=== PATIENT | female | born 1995 | race Caucasian/White ===

== ENCOUNTER 2020-01-28 16:09 | Emergency (ER) | payer MEDICAID, SELFPAY ==
--- NOTE | 2020-01-28 16:15 | DI.RAD_ITS ---
EXAM: XR ANKLE RT COMPLETE CLINICAL HISTORY: Right lateral ankle pain. TECHNIQUE: 2D digital imaging was performed. COMPARISON: No exams were available for comparison FINDINGS: BONES: No acute fracture is present. No bony destructive lesion is seen. JOINTS: The ankle mortise is normally aligned. SOFT TISSUE: Normal. IMPRESSION: Unremarkable radiographs of the right ankle. DATA REPOSITORY: RADIATION DOSE DELIVERED:
[2020-01-28 16:16] VITALS: BP 145/69; PULSE 118; RESP 18; TEMP 36.3; O2SAT 97
--- NOTE | 2020-01-28 16:19 | W.ED.GENAD ---
Discharge Plan Disposition Patient Disposition: HOME Condition: Stable Discharge Details Chief Complaint: Orthopedic Clinical Impression: Right ankle sprain Primary Care Provider: Unknown,Unknown ED Provider: Johana Taylor Discharge Instructions Instructions: Ankle Sprain (ED) Additional Instructions: Follow up with primary care provider in 3-5 days. Return to ED sooner if any worsening or concerns. Increase oral fluids. Please take Tylenol or Ibuprofen with food every 4-6 hours as needed for pain and swelling. Toe-touch weightbearing as tolerated. Rest, ice, compression, elevation. Use splint and crutches as needed for comfort. Stand Alone Forms: Work Release Medical Decision Making At this time x-rays were ordered and ibuprofen 600 mg p.o. TECHNIQUE: Imaging protocol: XR Right ankle. Views: 3 or more views. COMPARISON: No relevant prior studies available. FINDINGS: Bones/joints: No acute fracture identified. Soft tissues: There is mild soft tissue swelling in the region of the lateral malleolus. IMPRESSION: 1. No acute fracture identified. If symptoms persist, consider follow-up imaging in 7 days or alternative imaging modalities. 2. Mild soft tissue swelling in the region of the lateral malleolus. This is a nonspecific finding that can be seen with trauma or infection. Thank you for allowing us to participate in the care of your patient. Dictated and Authenticated by: Tiffany Marroquin MD Patient given a lace up ankle splint and crutches instructed on home care verbalized understanding. HPI General Mode of arrival: ambulatory. Date/Time Provider Initiated Documentation: 01/28/20 16:18. Limitations to Documentation: no limitations. Information obtained by: patient. 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 Patient was at the grocery store wearing flip-flops when she twisted her ankle. She did not following to the ground. She is complaining of right lateral ankle pain just distal to her lateral malleolus. There is no obvious deformity or swelling noted. Dorsal pedal pulses are intact. Extremity is pink warm dry. No proximal tenderness or injury noted. No other complaints at this time. She did not take any medications prior to arrival. She reports pain with weightbearing. Review of Systems Narrative: Constitutional: Negative for weight loss, alert and oriented, well groomed, normal body habitus, appears comfortable. HEENT: Denies trauma, headaches, blurry vision, nasal discharge, sore throat, trouble swallowing. Chest: Denies chest pain, palpitations, irregular rhythm, hypertension. Respiratory: Denies Shortness of breath, cough, hemoptysis. Musculoskeletal: Right ankle pain [facility] Social History Smoking/Tobacco Use Status: Former Tobacco Use Drug use: Never Substance use type: does not use Do you feel safe at home: Yes Do you feel safe in your relationship?: Yes Exam Narrative Exam Narrative: Constitutional: Alert and oriented x3. Appears stated age. Normal body habitus. Head: Normocephalic, no trauma. Eyes: Pupils PERRLA, Red reflex noted, EOM's intact. Eyelids symmetrical without lesions, discharge, or swelling. ENT: Bilateral TM's WNL, External ear normal to inspection, no mastoid TTP, swelling, or erythema, Nasal turbinates WNL, no nasal discharge. Normal dentition, Posterior pharynx WNL, no exudate. Chest: RRR, Normal S1, S2, distal pulses intact. Resp: Lungs clear to auscultation bilaterally, no wheezes, rales, or rhonchi. Musculoskeletal: Normal gait, 5/5 strength to all four extremities. Right lateral ankle tenderness just distal to the lateral malleolus. No obvious deformity or swelling. Dorsal pedal pulses intact. Cap refill less than 2 seconds. Skin: No suspicious rashes or lesions. Capillary refill less than 2 sec. Neurologic: Cranial nerves II-XII intact. Alert and oriented x 3. DTR's intact. Hematologic/Lymphatic: No ecchymosis, no lymphadenopathy.
[2020-01-28] MEDS: Ibuprofen 600 MG TAB PO (16:26)
--- NOTE | 2020-01-28 17:06 | DI.VRAD_ITS ---
PROCEDURE INFORMATION: Exam: XR Right Ankle Exam date and time: 01/28/2020 4:54 PM Age: 24 years old Clinical indication: Other: RT lateral ankle pain TECHNIQUE: Imaging protocol: XR Right ankle. Views: 3 or more views. COMPARISON: No relevant prior studies available. FINDINGS: Bones/joints: No acute fracture identified. Soft tissues: There is mild soft tissue swelling in the region of the lateral malleolus. IMPRESSION: 1. No acute fracture identified. If symptoms persist, consider follow-up imaging in 7 days or alternative imaging modalities. 2. Mild soft tissue swelling in the region of the lateral malleolus. This is a nonspecific finding that can be seen with trauma or infection. Dictated and Authenticated by: Tiffany Marroquin MD. Ordering:BOB Vaughn MD
== END 2020-01-28 17:36 | disposition home or self-care (01) ==
PROVIDERS: Emergency Provider Registered Nurse Emergency
DX: S93.491A Sprain of other ligament of right ankle, initial encounter (principal); W01.0XXA Fall on same level from slipping, tripping and stumbling without subsequent striking against object, initial encounter; X50.9XXA Other and unspecified overexertion or strenuous movements or postures, initial encounter
CPT/HCPCS: 99283; 73610; E0114; L1902

== ENCOUNTER 2020-05-16 19:00 | Outpatient (REF) | payer MEDICAID, SELFPAY | END 2020-05-16 19:20 | LOC: NCHCN 19:00 | PROVIDERS: Visit Provider Nurse Practitioner Women's Health | DX: R30.0 Dysuria (principal) | CPT/HCPCS: 87086 ==

== ENCOUNTER 2020-05-17 01:16 | Outpatient (CLI) | payer MEDICAID, SELFPAY ==
[2020-05-17 17:38] LABS: *AMPHETAMINES SCREEN URINE Negative (Negative); *BARBITURATES SCREEN URINE Negative (Negative); *BENZODIAZEPINES SCREEN URINE Negative (Negative); Cannabinoids THC Negative (Negative); Cocaine Screen,Urine Negative (Negative); METHADONE URINE SCREEN Negative (Negative); OPIATES URINE SCREEN Negative (Negative)
[2020-05-17 17:54] LABS: Tricyclic Antidepressants Negative (Negative)
[2020-05-21 14:59] LABS: Chlamydia Result Negative (Negative); GC Result Negative (Negative)
[2020-05-24 16:37] LABS: Buprenorphine Negative; Norbuprenorphine Negative
== END 2020-05-17 01:36 ==
PROVIDERS: Visit Provider Advanced Practice Midwife
DX: Z34.91 Encounter for supervision of normal pregnancy, unspecified, first trimester (principal); Z11.3 Encounter for screening for infections with a predominantly sexual mode of transmission; Z3A.11 11 weeks gestation of pregnancy
CPT/HCPCS: 80307; 87491; 87591; 87086

== ENCOUNTER 2020-05-17 17:13 | Outpatient (REF) | payer MEDICAID, SELFPAY ==
--- NOTE | 2020-05-17 14:35 | PAPFT_PTH ---
PATIENT: Roxie Cherry LOC: [facility] U#:[id number] AGE/SX: 24/F ROOM: RE05/17/[address]: Alli Mohr RN : 1995 BED: DIS: 05/17/2020 SPEC #: [id number] RECD: 05/17/20 17:48 STATUS: JOHNNIE REQ #: [id number] JOMAR: 05/17/20 14:[address]: Alli Mohr DEPT: [facility] Cytology RECD BY: Nicole River ENTERED: 05/17/20 17:49 SP TYPE: PAPFT OTHR DR: Unknown,Unknown Tissues: 1 - CX/ENDOCX FOR PAP SMEARS Procedures: PAP THIN PREP/UVM Screening Comments: [id number]
== END 2020-05-17 17:33 ==
LOC: LBN 17:13
PROVIDERS: Visit Provider Advanced Practice Midwife
DX: Z12.4 Encounter for screening for malignant neoplasm of cervix (principal)
CPT/HCPCS: 88142

== ENCOUNTER 2020-07-09 01:35 | Outpatient (CLI) | payer MEDICAID, SELFPAY ==
--- NOTE | 2020-07-09 08:30 | DI.US_ITS ---
EXAM: US OB 2-3 TRIMESTER CLINICAL HISTORY: routine pnc,[id number].11. TECHNIQUE: Transabdominal obstetrical ultrasound performed. COMPARISON: No exams were available for comparison FINDINGS: Transabdominal obstetrical ultrasound performed. FINDINGS: Number of fetuses: One. position: Breech heart rate: heart rate was noted but not obtained. Placental location: Anterior no evidence of previa. Amniotic fluid index: Amount of fluid is within normal limits. ANATOMICAL SURVEY: Within normal limits. BIOMETRIC DATA: BPD: 4.0cm consistent with 18 weeks 1 day. HC: 15.7cm consistent with 18 weeks 4 days. AC: 13.0cm consistent with 18 weeks 4 days. FL: 2.9cm consistent with 18 weeks 5 days. Cisterna Magna: 3.2 mm Cerebellum: 1.9 cm EFW: 249 grms 48% Composite Age: 18 weeks 4 days EDC by US: 12/06/2020 IMPRESSION: 1. Single live intrauterine gestation as above. 2. Normal anatomic survey. DATA REPOSITORY:
== END 2020-07-09 01:36 | disposition home or self-care (01) ==
LOC: DI 01:36
PROVIDERS: Visit Provider Advanced Practice Midwife
DX: Z34.92 Encounter for supervision of normal pregnancy, unspecified, second trimester (principal); Z3A.18 18 weeks gestation of pregnancy
CPT/HCPCS: 76805

== ENCOUNTER 2020-09-21 16:19 | Observation (INO) | payer MEDICAID, SELFPAY ==
[2020-09-21] MEDS: LORazepam 1 MG TAB PO (16:21)
[2020-09-21] MEDS: Lidocaine/Prilocaine Cream 5 GM TUBE TP (16:37)
--- NOTE | 2020-09-21 16:38 | NUR.NOTE ---
pt finished glucola at 1625. Lab has been notified to do draw on unit at 1725 along with all other ordered labs. RN spoke with lab to verify timing and orders. Pt received 1mg lorazepam for anxiety at 1621. Emla cream applied to both antecubital areas at 1637 in preparation for blood draw. pt is cooperative and aware of planNursing Note:
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
--- NOTE | 2020-09-21 17:52 | NUTRITION ---
Anesthesia gave MKO melt at 1709 pt vomited about 25cc around 2 minutes later. Pt on continuous pulse ox per anesthesia protocol. RN unable to see medication in emesis due to it either being absorbed in emesis or absorbed by pt. CNM declined to have RN do monitoring.
--- NOTE | 2020-09-21 18:11 | NUR.NOTE ---
Pt able to use nitrous while getting blood drawn, blood draw was successful performed by lab. Re-discussed monitoring with CNM, will do an NST once blood type comes back per CNM Nursing Note:
[2020-09-21 18:27] LABS: HCT 33.8 % (36.0-46.0); HGB 11.4 g/dL (11.2-15.7); MCHC 33.7 % (32.0-36.0); MPV 9.9 fL (8.0-11.0); Platelet Count 267 10^3/uL (130-400); RBC 4.07 10^6/uL (3.93-5.22); RDW-SD 39.2 fL; WBC 13.34 10^3/uL (4.4-10.8)
--- NOTE | 2020-09-21 18:34 | ANES_ITS ---
Date of service: 09/21/20 Time of Service: 18:34 Anesthesia Note Report Anesthesia Note: Anesthesia was consulted earlier this week on this patient by Satish Alarcon for procedural sedation due to the patient's significant history of needle phobia and being 28 weeks gestation without having labs performed. The patient was initially scheduled this past Thursday, however, she cancelled. Rescheduled this afternoon, Satish Alarcon came to the Anesthesia group requesting assistance and potentially additional sedation options. The group discussed possible safe and best medications for the patient and settled on 2 tabs MKO as the best option. 1620: Satish Alarcon called from OB letting this provider know the patient had arrived, gone through intake, and received her glucose drink and 1 mg of Ativan. I proceeded to bedside and met the patient and her partner, Erich. I discussed goals and options with the patient. Plan on arriving back at bedside to assess level of sedation at 1650. 1650: Saw patient again at bedside, does not feel very sedated. Patient appears bright and talkative. Discussed usage of MKOs and brought them to bedside. Patient was preoperatively assessed and consented in presence of her partner and Satish Alarcon. 1710: SPO2 monitoring attached to patient. Initial HR and O2 saturation 147 bpm and 98% on RA. Administered 2 MKOs to the patient. She did not tolerate the taste well and within five minutes vomited about 50 ml bile and glucose mixture with one partially melted MKO visible. The tab did completely melt in the emesis. Patient felt the other tab might have also been in the mixture. I believe the patient absorbed about half a tab. Remained close at bedside and monitored patient. Does appear to have some effect, reports feeling dizzy on standing and feeling tired. HR and SPO2 remain stable at a reduced rate of 112 bpm and 97% RA. Discussed use of nitrous as a supplement with Satish Alarcon, she ordered and managed nitrous at the bedside with the patient. We, as a team, discussed the goal of obtaining a lab draw from the patient. She was initially resistant and also was uncertain of continuing with nitrous therapy. Discussed intranasal precedex, reached out to Kel Gutiérrez for second opinion. Agreed dosing is not necessarily comfortable and is long acting and might pose more of a risk than a benefit to the patient. Several other options discussed, however, without IV access they seem to present more of a risk than is appropriate for a lab draw. We decided one more MKO, swallowed versus allowed to absorb sublingually would be the best option anesthetically. As a team we discussed the option and the rational behind it and brought this plan to the patient. She elected, on her own volition to attempt nitrous and familial support and agreed to her lab draw. The lab draw was successful. 182: Concern related to possible rhogam injection if necessary and the possible need for more sedation. Considering our most recent success I believe that a similar approach would be the best approach. Currently the patient is anesthe tically appropriate for discharge and discussed this with Satish Alarcon and OB RN. Patient and partner were educated and requested patient be wheeled to car by OB RN on discharge. I am available if further consult is necessary for this patient. Medications: 2 MKOs were used for this patient for procedural sedation by Anesthesia.
[2020-09-21 18:50] VITALS: BP 121/70; PULSE 101
[2020-09-21 18:52] LABS: TSH (W/Ref FT4) 5.04 uIU/mL (0.36-3.74)
[2020-09-21 19:07] VITALS: BP 121/70; PULSE 101; TEMP 36.9
[2020-09-21 19:20] LABS: FREE T4 0.87 ng/dL (0.76-1.46)
--- NOTE | 2020-09-21 19:32 | W.PM.OBDISCH ---
Date of service: 09/21/20 Time of Service: 19:32 DS: Diagnosis Discharge Diagnosis (1) Anxiety: Status: Chronic (2) Severe needle phobia: Status: Acute (3) 28 weeks gestation of : Status: Acute Discharge Plan Disposition Patient Disposition: HOME Condition: Good Discharge Details Reason For Visit: anxiety, needle-phobia, plan sedation for blood dr Admit Date/Time: 09/21/20 16:19 Admit Provider: Sherry Jorge Attending Provider: Sherry Jorge Primary Care Provider: Unknown,Unknown Hospital Course Hospital Course: successful blood draw after sedation and attendance of TELEPHONE RECORDER Home Meds and New Rx's Prescriptions: No Action PreTAB 29-1 mg tablet 1 tab PO DAILY Qty: 90 RF: 4 aspirin [Aspirin Low Dose] 81 mg tablet,delayed release (DR/EC) 81 mg PO DAILY RF: 0 triamcinolone acetonide 0.1 % cream 1 applic topical BID Qty: 80 RF: 4 acetaminophen 500 mg capsule 1,000 mg PO BID PRNRF: 0 Discharge Instructions Activity:: Activity as Tolerated Equipment/Supplies:: No Equipment Needed Diet:: Normal Diet Discharge Orders Discharge Orders: Discharge Order (Routine); Ordered 09/21/20 Ordered By: Cher Alarcon OB:DS Summary Contraception Discussed Contraception Discussed: No, Status at Discharge Functional status at discharge: independent ambulation Overall status at discharge: patient is back to baseline Mental Status: mental status grossly normal Speech and Movement: speech and movement normal and speech clear Mood: congruent mood Affect: normal affect [facility] Medical History (Updated 09/21/20 @ 19:22 by Cher Alarcon) Family history of thrombophlebitis PE - mother from same Severe needle phobia Trauma in childhood Family History (Updated 05/17/20 @ 13:35 by Alli Mohr CNM) Father Bladder cancer Oral cancer Flesh-eating bacteria from same. Mother Pulmonary embolism and infarction Depression Multiple personality disorder Asthma Social History Smoking/Tobacco Use Status: Former Tobacco Use Smoking risk assessment performed?: Yes Drug use: Never Substance use type: does not use Do you feel safe at home: Yes Do you feel safe in your relationship?: Yes History History 1 Para 0 Hx # Term Pregnancies 0 Multiple births 0 Hx # Pregnancies 0 Ectopic pregnancies 0 AB induced 0 Hx Number of Living Children 0 AB spontaneous 0 DS: Data Data Completed and Pending Labs on day of discharge: Labs from last 24 hours 09/21/20 09/21/20 09/21/20 18:05 18:05 18:05 WBC RBC Hgb Hct MCV MCH MCHC RDW Plt Count MPV PT Pending INR Pending APTT Pending Pending PTT Control Pending PTT Patient/Cntrl Mix Pending Silica Clot Time Scrn Pending D-Dimer Pending Dil Kevan Viper Venom Pending Lupus Anticoag Interp Pending Functional Protein C Pending APC Resist Ratio (V) Pending APC Resistance Interp Pending Functional Protein S Pending Func Antithrombin III Pending Factor VIII Pending Glucose 1 Hour TSH Free T4 Beta-2 GPI IgG Ab Pending Beta-2 GPI IgM Ab Pending Phospholipid IgG Ab Pending Phospholipid IgM Ab Pending Syphilis Total Ab Hep Bs Antigen Hepatitis C Antibody HIV 1&2 Ag/Ab, 4th Gen Rubella IgG Antibody VZV IgG Antibody Pending CF Specimen CF Source CF Method Cystic Fibrosis Result CF Result Summary CF Interpretation CF Additional Info CF Reviewed By Patient ABO/Rh Antibody Screen 09/21/20 09/21/20 09/21/20 18:05 18:05 18:05 WBC RBC Hgb Hct MCV MCH MCHC RDW Plt Count MPV PT INR APTT PTT Control PTT Patient/Cntrl Mix Silica Clot Time Scrn D-Dimer Dil Kevan Viper Venom Lupus Anticoag Interp Functional Protein C APC Resist Ratio (V) APC Resistance Interp Functional Protein S Func Antithrombin III Factor VIII Glucose 1 Hour TSH 5.04 H Free T4 0.87 Beta-2 GPI IgG Ab Beta-2 GPI IgM Ab Phospholipid IgG Ab Phospholipid IgM Ab Syphilis Total Ab Pending Hep Bs Antigen Hepatitis C Antibody HIV 1&2 Ag/Ab, 4th Gen Rubella IgG Antibody VZV IgG Antibody CF Specimen Pending CF Source Pending CF Method Pending Cystic Fibrosis Result Pending CF Result Summary Pending CF Interpretation Pending CF Additional Info Pending CF Reviewed By Pending Patient ABO/Rh Antibody Screen 09/21/20 09/21/20 09/21/20 18:05 18:05 18:05 WBC RBC Hgb Hct MCV MCH MCHC RDW Plt Count MPV PT INR APTT PTT Control PTT Patient/Cntrl Mix Silica Clot Time Scrn D-Dimer Dil Kevan Viper Venom Lupus Anticoag Interp Functional Protein C APC Resist Ratio (V) APC Resistance Interp Functional Protein S Func Antithrombin III Factor VIII Glucose 1 Hour TSH Free T4 Beta-2 GPI IgG Ab Beta-2 GPI IgM Ab Phospholipid IgG Ab Phospholipid IgM Ab Syphilis Total Ab Hep Bs Antigen Pending Hepatitis C Antibody Pending HIV 1&2 Ag/Ab, 4th Gen Pending Rubella IgG Antibody VZV IgG Antibody CF Specimen CF Source CF Method Cystic Fibrosis Result CF Result Summary CF Interpretation CF Additional Info CF Reviewed By Patient ABO/Rh Antibody Screen 09/21/20 09/21/20 09/21/20 18:05 18:05 18:05 WBC 13.34 H RBC 4.07 Hgb 11.4 Hct 33.8 L MCV 83.0 MCH 28.0 MCHC 33.7 RDW 13.0 Plt Count 267 MPV 9.9 PT INR APTT PTT Control PTT Patient/Cntrl Mix Silica Clot Time Scrn D-Dimer Dil Kevan Viper Venom Lupus Anticoag Interp Functional Protein C APC Resist Ratio (V) APC Resistance Interp Functional Protein S Func Antithrombin III Factor VIII Glucose 1 Hour TSH Free T4 Beta-2 GPI IgG Ab Beta-2 GPI IgM Ab Phospholipid IgG Ab Phospholipid IgM Ab Syphilis Total Ab Hep Bs Antigen Hepatitis C Antibody HIV 1&2 Ag/Ab, 4th Gen Rubella IgG Antibody Pending VZV IgG Antibody CF Specimen CF Source CF Method Cystic Fibrosis Result CF Result Summary CF Interpretation CF Additional Info CF Reviewed By Patient ABO/Rh B Positive Antibody Screen Negative 09/21/20 17:25 WBC RBC Hgb Hct MCV MCH MCHC RDW Plt Count MPV PT INR APTT PTT Control PTT Patient/Cntrl Mix Silica Clot Time Scrn D-Dimer Dil Kevan Viper Venom Lupus Anticoag Interp Functional Protein C APC Resist Ratio (V) APC Resistance Interp Functional Protein S Func Antithrombin III Factor VIII Glucose 1 Hour Cancelled TSH Free T4 Beta-2 GPI IgG Ab Beta-2 GPI IgM Ab Phospholipid IgG Ab Phospholipid IgM Ab Syphilis Total Ab Hep Bs Antigen Hepatitis C Antibody HIV 1&2 Ag/Ab, 4th Gen Rubella IgG Antibody VZV IgG Antibody CF Specimen CF Source CF Method Cystic Fibrosis Result CF Result Summary CF Interpretation CF Additional Info CF Reviewed By Patient ABO/Rh Antibody Screen
--- NOTE | 2020-09-23 07:59 | W.OBNST ---
Date of service: 09/21/20 Time of Service: 19:15 NST Evaluation Reason for NST Reasons for Nonstress Test: OTHER, SEE COMMENT Reason for NST Other: wellbeing after sedation Gestational Age Gestational Age in Weeks and Days: 29 Weeks and 1Days Test and Monitor Explained Test/Monitor Explained: Test Explained, Monitor Explained and Patient Verbalized Understanding Vital Signs Blood Pressure: 121/70 Pulse: 101 Temperature: 98.4 F NST Information Date on Monitor: 09/21/20 Time on Monitor: 18:46 Date off Monitor: 09/21/20 Time off Monitor: 19:09 Total Time on Monitor: 23 NST Interventions: PO Hydration NST Evaluation Patient States Movement: Present Variability: Moderate 6-25 bpm Accelerations: 10x10 Decelerations: None NST Results: Reactive Note NST Note NST Reviewed and Verified by: Cher Alarcon
[2020-09-23 08:04] VITALS: BP 121/70; PULSE 101; TEMP 36.9
[2020-09-23 16:24] LABS: PTT (UVM) 28 secs (26-37)
[2020-09-23 16:25] LABS: D-Dimer (UVM) 267 ng/mL DDU (<=230)
[2020-09-24 09:34] LABS: Factor 8 Assay 222 % (50-150)
[2020-09-24 09:37] LABS: Antithrombin 3, Funct. 80 % (85-125)
[2020-09-24 10:53] LABS: Varicella IgG Antibody Positive (See Note)
[2020-09-24 10:54] LABS: Rubella IgG Ab (UVM) Positive (See Note)
[2020-09-24 11:14] LABS: Hepatitis B Surface Ag Negative (Negative)
[2020-09-24 12:08] LABS: HIV-1/2 Ag & Ab Screen Negative (Negative)
[2020-09-24 12:09] LABS: Hepatitis C Ab w Rflx HCV PCR Negative (Negative)
[2020-09-24 17:41] LABS: Dilute Russell Viper Venom 35.8 secs (31.9-47.0); LA Cascade Summary (See Note)
[2020-09-25 10:54] LABS: Syphilis Total Ab w/Reflex Nonreactive (Nonreactive)
[2020-09-25 17:07] LABS: Beta 2 GP1 Ab IgG <9.4 U/mL; Beta 2 GP1 Ab IgM <9.4 U/mL
[2020-09-25 17:32] LABS: Phospholipid Ab, IgG <9.4 GPL; Phospholipid Ab, IgM <9.4 MPL
[2020-09-26 11:34] LABS: Protein C, Functional 80 % (71-199); Protein S, Functional 58 % (64-147)
[2020-09-28 15:20] LABS: Result Summary NEGATIVE; Specimen WB Whole Blood
== END 2020-09-21 19:15 | disposition home or self-care (01) ==
PROVIDERS: Advanced Practice Midwife; Admitting Provider Advanced Practice Midwife; Visit Provider Advanced Practice Midwife
DX: O99.343 Other mental disorders complicating pregnancy, third trimester (principal); F40.231 Fear of injections and transfusions; Z3A.28 28 weeks gestation of pregnancy; O26.893 Other specified pregnancy related conditions, third trimester; M54.32 Sciatica, left side
CPT/HCPCS: 81240; 81241; 82784; 82950; 85027; 85300; 85303; 85306; 85610; 85613; 85730; 85732; 86704; 86706; 86787; 86803; 86850; 86900; 86901; 87340; 87389; 59025; 81220; 84439; 84443; 85240; 85379; 86762; 86780; G0378

== ENCOUNTER 2020-10-10 16:53 | Outpatient (CLI) | payer MEDICAID, SELFPAY ==
[2020-10-10 17:47] VITALS: BP 129/67; PULSE 107
[2020-10-10 18:41] VITALS: BP 129/67; PULSE 107; TEMP 36.6
--- NOTE | 2020-10-11 06:59 | W.OBNST ---
Date of service: 10/10/20 Time of Service: 18:59 NST Evaluation Reason for NST Reasons for Nonstress Test: DECREASED MOVEMENT Reason for NST Other: Spotting Gestational Age Gestational Age in Weeks and Days: 31 Weeks and 6Days Test and Monitor Explained Test/Monitor Explained: Test Explained, Monitor Explained and Patient Verbalized Understanding Vital Signs Blood Pressure: 129/67 Pulse: 107 Temperature: 97.9 F NST Information Date on Monitor: 10/10/20 Time on Monitor: 17:15 Date off Monitor: 10/10/20 Time off Monitor: 17:45 Total Time on Monitor: 30 NST Interventions: Reposition Patient Contraction Frequency: none NST Evaluation Patient States Movement: Present FHR Baseline: 135 Variability: Moderate 6-25 bpm Accelerations: 15x15 Decelerations: None NST Results: Reactive Note NST Note Note: Sterile spec exam done, VPS collected, no bleeding seen, pt discharged to home NST Reviewed and Verified by: Cher Alarcon
[2020-10-11 07:00] VITALS: BP 129/67; PULSE 107; TEMP 36.6
== END 2020-10-10 18:00 | disposition home or self-care (01) ==
LOC: BCD 16:58 → OBS 17:10
PROVIDERS: Referring Provider Advanced Practice Midwife; Visit Provider Advanced Practice Midwife
DX: O36.8130 Decreased fetal movements, third trimester, not applicable or unspecified (principal); O26.853 Spotting complicating pregnancy, third trimester; Z3A.31 31 weeks gestation of pregnancy
CPT/HCPCS: 59025; 87480; 87510; 87660

== ENCOUNTER 2020-10-12 18:05 | Outpatient (REF) | payer MEDICAID, SELFPAY ==
[2020-10-12 17:12] LABS: *AMPHETAMINES SCREEN URINE Negative (Negative); *BARBITURATES SCREEN URINE Negative (Negative); *BENZODIAZEPINES SCREEN URINE Negative (Negative); Cannabinoids THC Negative (Negative); Cocaine Screen,Urine Negative (Negative); METHADONE URINE SCREEN Negative (Negative); OPIATES URINE SCREEN Negative (Negative)
[2020-10-12 17:14] LABS: Tricyclic Antidepressants Negative (Negative)
[2020-10-15 15:32] LABS: Chlamydia Result Negative (Negative); GC Result Negative (Negative)
[2020-10-19 10:06] LABS: Buprenorphine Negative ng/mL (Cutoff: 5.0); Norbuprenorphine Negative ng/mL (Cutoff: 2.5)
== END 2020-10-12 18:06 | disposition home or self-care (01) ==
LOC: LBN 18:05
PROVIDERS: Visit Provider Advanced Practice Midwife
DX: Z34.93 Encounter for supervision of normal pregnancy, unspecified, third trimester (principal); Z11.3 Encounter for screening for infections with a predominantly sexual mode of transmission; Z3A.31 31 weeks gestation of pregnancy
CPT/HCPCS: 80307; 87491; 87591

== ENCOUNTER 2020-10-19 05:17 | Outpatient (CLI) | payer MEDICAID, SELFPAY ==
--- NOTE | 2020-10-19 08:59 | PDOC.NST_ITS ---
Date of service: 10/19/20 Time of Service: 03:00 NST Evaluation Reason for NST Reasons for Nonstress Test: OTHER, SEE COMMENT Reason for NST Other: abdominal cramping and nausea and vomiting Gestational Age Gestational Age in Weeks and Days: 31 Weeks and 6Days Test and Monitor Explained Test/Monitor Explained: Test Explained, Monitor Explained and Patient Verbalized Understanding NST Information NST Interventions: PO Hydration NST Evaluation Patient States Movement: Present FHR Baseline: 135 Variability: Moderate 6-25 bpm Accelerations: 15x15 and 10x10 Decelerations: None NST Results: Reactive Note NST Note Note: Roxie arrived for NST due to recent GI distress that has lead to abdominal discomfort and muscle ache. Denies LOF or vaginal bleeding. No palpable contractions noted over 30 minutes of comic book writer standing and chatting with patient with my hand on abdomen. She was able to rest and had reactive NST. Will go home and call if any further concerns. RTO as scheduled.SEFERINO NST Reviewed and Verified by: Sherry Jorge
== END 2020-10-19 05:18 | disposition home or self-care (01) ==
LOC: BCD 05:18
PROVIDERS: Visit Provider Advanced Practice Midwife
DX: O26.893 Other specified pregnancy related conditions, third trimester (principal); R10.9 Unspecified abdominal pain; R11.0 Nausea; Z3A.31 31 weeks gestation of pregnancy
CPT/HCPCS: 59025; G0378

== ENCOUNTER 2020-10-25 01:41 | Outpatient (CLI) | payer MEDICAID, SELFPAY ==
--- NOTE | 2020-10-25 08:15 | DI.US_ITS ---
Exam(s) US OB MANISH WEIGHT EXAM: US OB MANISH WEIGHT CLINICAL HISTORY: growth and MANISH,VAGINAL BLEEDING,o46.90. TECHNIQUE: Transabdominal obstetrical ultrasound was performed. COMPARISON: US US OB 2-3 TRIMESTER from 07/09/2020 FINDINGS: There is a single viable intrauterine gestation with cardiac activity identified-153 bpm The fetus is presently in cephalic position . Amniotic fluid: There is a normal amount of amniotic fluid with an MANISH of 18.8cm. Placental location: The placenta is anterior grade 2,with no evidence of placenta previa. Dating parameters place this at approximately 34 week gestational age, implying GABRIEL of December 06, 2020. BPD measures 33 weeks and 6 days HC measures 34 weeks and 4 days AC measures 33 weeks and 6 days FL measures 33 weeks and 5 days Estimated weight is 2295 gm-5 pounds 1 ounce Fetus is at the 39th percentile on the Hadlock scale. IMPRESSION:: Viable 3rd trimester gestation, as described above. DATA REPOSITORY:
== END 2020-10-25 02:01 ==
PROVIDERS: Visit Provider Advanced Practice Midwife
DX: O46.93 Antepartum hemorrhage, unspecified, third trimester (principal); Z3A.34 34 weeks gestation of pregnancy
CPT/HCPCS: 76816

== ENCOUNTER 2020-11-08 16:27 | Outpatient (REF) | payer MEDICAID, SELFPAY ==
[2020-11-08 17:12] LABS: *AMPHETAMINES SCREEN URINE Negative (Negative); *BARBITURATES SCREEN URINE Negative (Negative); *BENZODIAZEPINES SCREEN URINE Negative (Negative); Cannabinoids THC Negative (Negative); Cocaine Screen,Urine Negative (Negative); METHADONE URINE SCREEN Negative (Negative); OPIATES URINE SCREEN Negative (Negative)
[2020-11-08 17:16] LABS: Tricyclic Antidepressants Negative (Negative)
[2020-11-16 13:14] LABS: Buprenorphine Negative ng/mL (Cutoff: 5.0); Norbuprenorphine Negative ng/mL (Cutoff: 2.5)
== END 2020-11-08 16:28 | disposition home or self-care (01) ==
LOC: LBN 16:27
PROVIDERS: Visit Provider Advanced Practice Midwife
DX: Z34.93 Encounter for supervision of normal pregnancy, unspecified, third trimester (principal); Z36.85 Encounter for antenatal screening for Streptococcus B; Z3A.36 36 weeks gestation of pregnancy
CPT/HCPCS: 80307; 87081

== ENCOUNTER 2020-12-06 07:00 | Inpatient (IN) | payer MEDICAID, SELFPAY ==
[2020-12-06] VITALS (14 sets, daily range): BP systolic 114–160; BP diastolic 67–96; PULSE 77–127; RESP 16–24; TEMP 36.5–36.9; O2SAT 93–99
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
[2020-12-06] MEDS: Lidocaine/Prilocaine Cream 5 GM TUBE TP (09:41)
[2020-12-06 10:33] LABS: Source Nasal/Nares
[2020-12-06 10:41] LABS: HCT 40.6 % (36.0-46.0); HGB 13.4 g/dL (11.2-15.7); MCH 26.7 pg (27.0-33.0); MCV 80.9 fL (80-95); MPV 10.7 fL (8.0-11.0); Platelet Count 298 10^3/uL (130-400); RBC 5.02 10^6/uL (3.93-5.22); RDW 14.5 % (11.7-14.6); RDW-SD 42.3 fL; WBC 15.95 10^3/uL (4.4-10.8)
[2020-12-06 10:58] LABS: FREE T4 1.02 ng/dL (0.76-1.46); TSH 4.71 uIU/mL (0.36-3.74)
[2020-12-06 11:26] LABS: COVID-19 PCR Negative (Negative)
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
--- NOTE | 2020-12-06 14:56 | W.PM.OBNL1 ---
Date of service: 12/06/20 Time of Service: 14:56 Informed Consent Informed Consent: Other (artificial rupture of membranes) Pelvic Exam Dilation: 5 Effacement (%): 90 station: -1 Cervix Position: posterior Consistency: soft Vaginal Exam Presentation: Cephalic Pooling: Positive Contractions Monitor Mode: External Contraction Frequency(min): every 4 minutes Contraction Duration(sec): 50-60 Intensity: Moderate/Strong Fetus A Monitor: External (US) Heart Rate Baseline: 135 Presentation: Vertex Variability: Moderate (6-25 BPM) Categories: Category I FHR Rhythm: Regular Characteristics: Normal Accelerations: 15 X 15 Decelerations: None Amniotic Membrane Status: Ruptured Amniotic Fluid: Meconium (light meconium stained fluid) Assessment and Plan Assessment and plan (1) Spontaneous onset of labor: Status: Acute Assessment and plan: Roxie requests to use the tub for comfort and this is providing good relief. Anticipate . Objective Abnormal lab results 12/06/20 12/06/20 Range/Units 10:16 10:16 WBC 15.95 H (4.4-10.8) 10^3/uL MCH 26.7 L (27.0-33.0) pg TSH 4.71 H (0.36-3.74) uIU/mL Temp Pulse Resp BP 97.7 F 100 H 24 134/82 12/06/20 14:34 12/06/20 14:34 12/06/20 07:17 12/06/20 14:34 Laboratory Results WBC 15.95 10^3/uL (4.4-10.8) H 12/06/20 10:16 RBC 5.02 10^6/uL (3.93-5.22) 12/06/20 10:16 Hgb 13.4 g/dL (11.2-15.7) 12/06/20 10:16 Hct 40.6 % (36.0-46.0) 12/06/20 10:16 MCV 80.9 fL (80-95) 12/06/20 10:16 MCH 26.7 pg (27.0-33.0) L 12/06/20 10:16 MCHC 33.0 % (32.0-36.0) 12/06/20 10:16 RDW 14.5 % (11.7-14.6) 12/06/20 10:16 Plt Count 298 10^3/uL (130-400) 12/06/20 10:16 MPV 10.7 fL (8.0-11.0) 12/06/20 10:16 TSH 4.71 uIU/mL (0.36-3.74) H 12/06/20 10:16 Free T4 1.02 ng/dL (0.76-1.46) 12/06/20 10:16 COVID-19 Source Nasal/Nares 12/06/20 10:09 SARS-CoV-2 (PCR) Negative (Negative) 12/06/20 10:09 Patient ABO/Rh B Positive 12/06/20 10:16 Antibody Screen NEGATIVE 12/06/20 10:16 Vital Signs Reviewed: Yes Notable Details: Roxie is coping well and using nitrous oxide occasionally Subjective Patient Reports: New Complaints Interval history since last seen: Blood draw was achieved earlier under nitrous oxide analgesic and EMLA cream and Roxie tolerated this well using her coping strategies. stronger, more painful contractions. Results Hemoglobin/Hematocrit: Hgb 13.4 g/dL (11.2-15.7) 12/06/20 10:16 Hct 40.6 % (36.0-46.0) 12/06/20 10:16 Abnormal Lab Findings: Abnormal Labs 12/06/20 12/06/20 10:16 10:16 WBC 15.95 H MCH 26.7 L TSH 4.71 H
--- NOTE | 2020-12-06 19:07 | OBVDS_ITS ---
Date of service: 12/06/20 Time of Service: 19:07 OB Labor/ Delivery Information Baby A Delivery Delivery Method: Spontaneaous Presentation: Cephalic Vertex Position: Right Occipital Anterior Cord Description-Baby A: 3 Vessels Amniotic Fluid: Meconium Estimated Blood Loss: 300 Delivery Outcome: Liveborn Infant Complications: none Providers Nurse Certified First Assistant: Sherry Moncada Nurse: Mallika Dodge Nurse: Chepe Hernandez Labor/Delivery Information Number of Babies in Womb: 1 Steroids Given: None Reason Steroids Not Administered: N/A Group Beta Strep: Negative Antibiotics Administered: No Rubella Status: Immune Blood Type: B+ Varicella Immunity: Immune Medication in Delivery: na Maternal Complications: None Shoulder Dystocia: No Note: FHTs 130s during first stage of labor. FHTs 10s in second stage. Progressed to full dilation and began pushing on the toilet. There was terminal bradycardia to 96 bpm by doppler and Roxie was moved to the bed in right side- lying for delivery. Spontaneous delivery of female delivered in JANNET position. Baby was placed on mother's abdomen and dried and stimulated. Spontaneous cry. Cord was clamped and cut by the baby's father . The placenta delivered spontaneously and appears to by intact with a three vessel cord. Pitocin 10 units IM was administered after delivery of the placenta. The perineum was inspected and a superficial perineal and periurethral laceration were repaired under local and nitrous oxide anesthetics. The baby did breastfeed. After delivery, Mother and baby Fely and father of the baby were stable and bonding well in the delivery room and there were no complications. Stages of Labor Onset of Labor Date: 12/05/20 Onset of Labor Time: 02:30 Complete Dilatation Date: 12/06/20 Complete Dilatation Time: 17:45 Labor - Stage 1 Duration: 24 hours and 0 minutes ROM Baby A: 12/06/20 ROM Baby A: 14:15 ROM Total Time- Baby A: [id number] Infant Delivery Date-Baby A: 12/06/20 Delivery Time-Baby A: 18:04 Labor Stage 2 Duration: 19 minutes Placenta Delivery Date-Baby A: 12/06/20 Placenta Delivery Time-Baby A: 18:11 Labor-Stage 3 Duration: 7 minutes Total Length of Labor-Baby A: 39 hours and 34 minutes Placenta Cultured: No Placenta Status: Delivered Baby A Infant Gender: Female Gestational Status: Term (39-41.6 wks) Gestational Age in Weeks/Days: 40 Weeks and 0 Days weight: 7 lb 7.79 oz Length-Baby A: 20.5 in Head Circumference-Baby A: 13 in Score-1 Minute Interval(Baby A) Heart Rate-1 minute: 100 BPM or Greater Respiratory Effort- 1 minute: Spontaneous/Strong Cry Muscle Tone-1 minute: Active Movement Reflex Response-1 minute: Prompt Response Color-1 minute: Pallor or Cyanosis Total Score-1 minute: 8 Score-5 Minute Interval(Baby A) Heart Rate- 5 minute: 100 BPM or Greater Respiratory Effort-5 minute: Spontaneous/Strong Cry Muscle Tone-5 minute: Active Movement Reflex Response-5 minute: Prompt Response Color-5 minute: Bluish Hands or Feet Total Score- 5 minute: 9 Interventions Repair of Laceration Type: Perineal , Laceration Extension: First Degree . Sponge Count Correct: No Sponges Placed in Vagina , Sharp Count Correct: Yes . Laceration Repair Note: right perineal laceration with small right labial extension repaired with 3-0 vicryl suture. right licha-urethral laceeration repaired with 4-0 vicryl laceration under local anesthetic and nitrous oxide analgesia.
[2020-12-06] MEDS: Oxytocin 10 UNITS/ML VIAL IM (19:17)
[2020-12-06] MEDS: Acetaminophen 325 MG TAB 650 MG PO (19:45)
[2020-12-06] MEDS: Docusate Sodium 100 MG CAP PO (19:45)
[2020-12-06] MEDS: Ibuprofen 600 MG TAB PO (19:45)
[2020-12-06] MEDS: Dibucaine 1% 28 GM TUBE TP (19:46)
[2020-12-07 00:41] VITALS: BP 125/78; PULSE 85; RESP 18; TEMP 36.6
[2020-12-07] MEDS: Acetaminophen 325 MG TAB 650 MG PO ×3 (01:35→22:01)
[2020-12-07] MEDS: Ibuprofen 600 MG TAB PO ×2 (01:36→16:55)
[2020-12-07 04:11] VITALS: BP 120/68; PULSE 81; RESP 18; TEMP 36.6
[2020-12-07] MEDS: Levothyroxine 50 MCG TAB PO (06:06)
[2020-12-07 07:30] VITALS: BP 119/69; PULSE 78; RESP 14; TEMP 37
[2020-12-07 14:00] VITALS: BP 120/70; PULSE 82; RESP 16; TEMP 37
--- NOTE | 2020-12-07 15:05 | W.PM.OBPNV1 ---
Date of service: 12/07/20 Time of Service: 15:05 Assessment and Plan Assessment and plan (1) Term of female : Status: Acute Assessment and plan: Caring for baby independently. Pain is managed well with oral analgesics. Voiding without difficulty. well. A - stable mother and baby , Post day 1 P - Discharge to home tomorrow . Routine post instructions. [facility] Subjective Subjective Interval history: last evening with first degree and righ periurethral laceration Patient comments: No complaints and Pain well controlled baby status: Doing well feeding status: Exclusively breast feeding Exam Physical Exam Vital signs: Temp Pulse Resp BP Pulse Ox 98.6 F 78 14 119/69 98 12/07/20 07:30 12/07/20 07:30 12/07/20 07:30 12/07/20 07:30 12/06/20 23:15 Results Hemoglobin/Hematocrit: Hgb 13.4 g/dL (11.2-15.7) 12/06/20 10:16 Hct 40.6 % (36.0-46.0) 12/06/20 10:16 Abnormal Lab Findings: Abnormal Labs 12/06/20 12/06/20 10:16 10:16 WBC 15.95 H MCH 26.7 L TSH 4.71 H
[2020-12-07] MEDS: Docusate Sodium 100 MG CAP PO (16:55)
[2020-12-07] MEDS: Dibucaine 1% 28 GM TUBE TP (18:35)
--- NOTE | 2020-12-08 01:35 | NUR.NOTE ---
Pt called RN into room due to inability to sleep/console child. Pt asked Rn if she could take baby out of room so pt could get some sleep. Upond privacy compliance manager does note that pt is exhausted. Baby rooting and due to feed. RN helped pt get baby latched due to maternal fatigue. RN agreed to take baby to nurses station once baby is done nursing due to safety concerns involving maternal exhaustion. Nursing Note:
[2020-12-08] MEDS: Ibuprofen 600 MG TAB PO ×2 (02:11→08:30)
[2020-12-08] MEDS: Levothyroxine 50 MCG TAB PO (05:46)
[2020-12-08] MEDS: Acetaminophen 325 MG TAB 650 MG PO (05:50)
[2020-12-08 07:30] VITALS: BP 124/78; PULSE 84; RESP 16; TEMP 36.8
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
== END 2020-12-08 17:40 | disposition home or self-care (01) | DRG 807 ==
PROVIDERS: Admitting Provider Advanced Practice Midwife; Visit Provider Advanced Practice Midwife
DX: O99.344 Other mental disorders complicating childbirth (principal); Z37.0 Single live birth; Z3A.40 40 weeks gestation of pregnancy; F41.8 Other specified anxiety disorders; O70.0 First degree perineal laceration during delivery; O71.82 Other specified trauma to perineum and vulva; O77.0 Labor and delivery complicated by meconium in amniotic fluid; F40.231 Fear of injections and transfusions
CPT/HCPCS: 36415; 85027; 86850; 86900; 86901; 87635; 84439; 84443; J2590

== ENCOUNTER 2023-01-29 15:43 | Outpatient (REF) | payer MEDICAID, SELFPAY ==
--- NOTE | 2023-01-29 15:30 | PAPFT_PTH ---
PATIENT: Roxie Cherry LOC: [facility] U#:[id number] AGE/SX: 27/F ROOM: RE01/29/[address]: Ameena Grant DO : 1995 BED: DIS: 01/29/2023 SPEC #: [id number] RECD: 01/29/23 16:55 STATUS: JOHNNIE REQ #: [id number] JOMAR: 01/29/23 15:[address]: Ameena Grant DEPT: [facility] Cytology RECD BY: Nicole River Tissues: 1 - CX/ENDOCX FOR PAP SMEARS Procedures: PAP THIN PREP/UVM Screening HPV DNA PROBE Comments: [id number] (HPV 16 & 18/45) (CHLAMYDIA/GC)
[2023-01-30 15:26] LABS: Chlamydia Result Negative (Negative); GC Result Negative (Negative)
== END 2023-01-29 15:44 | disposition home or self-care (01) ==
LOC: LBN 15:43
PROVIDERS: Visit Provider Obstetrics & Gynecology
DX: Z11.3 Encounter for screening for infections with a predominantly sexual mode of transmission (principal); Z12.4 Encounter for screening for malignant neoplasm of cervix; Z11.51 Encounter for screening for human papillomavirus (HPV); R87.810 Cervical high risk human papillomavirus (HPV) DNA test positive
CPT/HCPCS: 87491; 87591; 88142; 87624

== ENCOUNTER 2023-06-30 07:37 | Emergency (ER) | payer MEDICAID, SELFPAY ==
[2023-06-30 07:38] VITALS: BP 142/85; PULSE 87; RESP 18; TEMP 36.4; O2SAT 95
[2023-06-30 07:55] VITALS: BP 141/89; PULSE 102; RESP 21; O2SAT 96
[2023-06-30 08:01] VITALS: PULSE 112; RESP 16; O2SAT 96
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
[2023-06-30 08:10] VITALS: PULSE 93; RESP 12; O2SAT 96
[2023-06-30] MEDS: hydrOXYzine HCL 25 MG TAB PO (08:13)
[2023-06-30] MEDS: Dexamethasone 4 MG TAB 12 MG PO (08:13)
[2023-06-30 08:20] VITALS: PULSE 102; PULSE 99; RESP 15; RESP 17; O2SAT 97
== END 2023-06-30 08:24 | disposition home or self-care (01) ==
PROVIDERS: Emergency Provider Student in an Organized Health Care Education/Training Program
DX: L50.9 Urticaria, unspecified (principal); Z87.891 Personal history of nicotine dependence
CPT/HCPCS: 99283; J8540

== ENCOUNTER 2023-12-02 11:19 | Outpatient (CLI) | payer MEDICAID, SELFPAY ==
[2023-12-02 22:02] LABS: Fibrinogen 392 mg/dL (171-384)
[2023-12-04 12:20] LABS: LA Cascade Summary (See Note)
[2023-12-08 13:54] LABS: Protein C Ag, P 115 % (72-160)
[2023-12-15 16:26] LABS: Protein C, Functional 139 % (71-199)
[2023-12-15 16:27] LABS: Protein S, Functional 128 % (64-147)
== END 2023-12-02 11:20 | disposition home or self-care (01) ==
LOC: LBO 11:20
PROVIDERS: PCP Nurse Practitioner Family; Visit Provider Nurse Practitioner Family
DX: Z82.49 Family history of ischemic heart disease and other diseases of the circulatory system
CPT/HCPCS: 36415; 81240; 81241; 85302; 85305; 85306; 85384; 87116; 84443; 85303; 86038

== ENCOUNTER 2024-11-08 13:49 | Outpatient (REF) | payer MEDICAID, SELFPAY ==
--- NOTE | 2024-11-08 13:40 | PAPFT_PTH ---
PATIENT: Roxie Cherry LOC: [facility] U#:[id number] AGE/SX: 29/F ROOM: RE11/08/[address]: Ameena Grant DO : 1995 BED: DIS: 11/08/2024 SPEC #: [id number] RECD: 11/08/24 17:04 STATUS: JOHNNIE REQ #: [id number] JOMAR: 11/08/24 13:[address]: Ameena Grant DEPT: [facility] Cytology RECD BY: Nicole River ENTERED: 11/08/24 17:04 SP TYPE: PAPFT OTHR DR: Yony Guerrero DNP Tissues: 1 - CX/ENDOCX FOR PAP SMEARS Procedures: PAP THIN PREP/UVM Screening HPV DNA PROBE Comments: [id number] (HPV 16 & 18/45)
== END 2024-11-08 13:50 | disposition home or self-care (01) ==
LOC: LBN 13:49
PROVIDERS: PCP Nurse Practitioner Family; Visit Provider Obstetrics & Gynecology
DX: Z12.4 Encounter for screening for malignant neoplasm of cervix (principal)
CPT/HCPCS: 88142; 87624

== ENCOUNTER 2025-01-31 11:19 | Outpatient (REF) | payer MEDICAID, SELFPAY ==
[2025-02-01 12:02] LABS: Chlamydia Result Negative (Negative); GC Result Negative (Negative)
== END 2025-01-31 11:20 | disposition home or self-care (01) ==
LOC: LBN 11:19
PROVIDERS: PCP Nurse Practitioner Family; Visit Provider Nurse Practitioner Women's Health
DX: Z11.3 Encounter for screening for infections with a predominantly sexual mode of transmission (principal)
CPT/HCPCS: 87491; 87591